=== PATIENT | male | born 1965 | race Caucasian/White ===

== ENCOUNTER 2020-12-25 21:23 | Observation (INO) | payer MEDICAID, MEDICARE, SELFPAY ==
[2020-12-25 22:56] VITALS: BMI 33.9
[2020-12-26] MEDS ORDERED: Ondansetron PF 4 MG/2 ML Vial IVP PRN (06:56)
[2020-12-26] MEDS ORDERED: HumaLOG 300 UNITS/3 ML VIAL SC PRN (06:56)
[2020-12-26] MEDS ORDERED: Dextrose 5% in Water 1,000 ML IV PRN (06:56)
[2020-12-26] MEDS ORDERED: Senokot S 8.6-50 MG TAB PO PRN (06:56)
[2020-12-26] MEDS ORDERED: Acetaminophen 325 MG TAB PO PRN (06:56)
[2020-12-26] MEDS ORDERED: Dextrose 50% Abboject 50 ML SYRINGE SLOW IVP PRN (06:56)
[2020-12-26] MEDS ORDERED: Guaifenesin DM 100-10/5 ML UDCUP PO PRN (06:56)
[2020-12-26] MEDS ORDERED: Sodium Chloride 0.9% 1,000 ML IV SCH (07:00)
[2020-12-26 07:48] LABS: Cardiac Risk 3.7 (Less than 4.5)
[2020-12-26 08:07] LABS: Syphilis Antibody Nonreactive (Nonreactive); Syphilis Antibody Index 0.06 S/CO (<1.00 Non-Reactive)
[2020-12-26] MEDS ORDERED: Famotidine 20 MG TAB PO SCH (09:00)
[2020-12-26] MEDS ORDERED: Aspirin 325 mg Enteric Coated Tablet PO SCH (09:00)
[2020-12-26] MEDS ORDERED: Enoxaparin Sodium 40 MG/0.4 ML SYRINGE SC SCH (09:00)
[2020-12-26 13:47] LABS: Amphetamine Not Detected (NotDetected); Barbiturates Screen Not Detected (NotDetected); Benzodiazepine Screen Not Detected (NotDetected); Cocaine Metabolite Screen Not Detected (NotDetected); Methadone Not Detected (NotDetected); Methamphetamine Not Detected (NotDetected); Opiate Screen Not Detected (NotDetected); Oxycodone Screen Not Detected (NotDetected); Phencyclidine (PCP) Not Detected (NotDetected); THC/Cannabinoid Screen Not Detected (NotDetected); Tricyclic Screen Not Detected (NotDetected)
[2020-12-26 15:52] VITALS: BP 147/91; TEMP 98.9
[2020-12-26 20:15] LABS: SARS-CoV-2 PCR by NAA Not Detected (NotDetected)
[2020-12-26] MEDS ORDERED: Atorvastatin Calcium 40 MG TAB PO SCH (21:00)
[2020-12-27 12:25] LABS: ANA Symphony (Qualitative) Negative (Negative); ANA Symphony (Quantitative) 0.1 Ratio (< 0.7 Negative); CCP IgG Antibody 1.2 EliAU/mL (<7 Negative); EliA RAS New Method **** NEW METHOD ****; Rheumatoid Factor IgA Antibody 5.4 IU/mL (<14 Negative); Rheumatoid Factor IgM Antibody Less than 0.5 IU/mL (<3.5 Negative); dsDNA IgG Antibody 0.5 IU/mL (<10 Negative)
== END 2020-12-26 17:12 | disposition home or self-care (01) ==
LOC: 3SE 21:23
PROVIDERS: ADMIT Student in an Organized Health Care Education/Training Program; ATTEND Internal Medicine
DX: H54.7 Unspecified visual loss (principal); E11.36 Type 2 diabetes mellitus with diabetic cataract; H26.9 Unspecified cataract; E11.319 Type 2 diabetes mellitus with unspecified diabetic retinopathy without macular edema; H35.61 Retinal hemorrhage, right eye; I10 Essential (primary) hypertension; Z20.822 Contact with and (suspected) exposure to COVID-19; Z79.84 Long term (current) use of oral hypoglycemic drugs
CPT/HCPCS: 36415; 36416; 70551; 80061; 80306; 83520; 85652; 86038; 86200; 86225; 86780; 96372; G0378; J1650; J1815; J7050; U0003; U0005